=== PATIENT | male | born 1985 | race Caucasian/White ===

== ENCOUNTER 2019-02-25 08:00 | Outpatient (CLI) | payer MEDICAID ==
[2019-02-25 18:35] LABS: BASOPHILS # (AUTO) 0.1 10^3/uL (0.0-0.1); BASOPHILS % (AUTO) 0.7 %; EOSINOPHILS # (AUTO) 0.3 10^3/uL (0.0-0.7); EOSINOPHILS % (AUTO) 4.8 %; HGB - HEMOGLOBIN 15.1 g/dL (14.0-18.0); LYMPHOCYTES # (AUTO) 1.7 10^3/uL (1.5-3.5); LYMPHOCYTES % (AUTO) 24.1 %; MEAN CORPUSCULAR HEMOGLOBIN 27.8 pg (27.0-31.0); MEAN CORPUSCULAR VOLUME 86.9 fL (80.0-94.0); MEAN PLATELET VOLUME 11.9 fL (7.4-11.4); MONOCYTES # (AUTO) 0.5 10^3/uL (0.0-1.0); MONOCYTES % (AUTO) 7.1 %; NEUTROPHILS # (AUTO) 4.3 10^3/uL (1.5-6.6); NEUTROPHILS % (AUTO) 63.2 %; PLT - PLATELET COUNT 210 10^3/uL (130-450); RED BLOOD COUNT 5.43 10^6/uL (4.70-6.10); RED CELL DISTRIBUTION WIDTH 13.2 % (12.0-15.0); WHITE BLOOD COUNT 6.9 x10^3/uL (4.8-10.8)
[2019-02-25 18:55] LABS: CALCIUM 9.1 mg/dL (8.5-10.3); CREATININE 0.9 mg/dL (0.6-1.2)
== END 2019-02-25 23:59 | disposition home or self-care (01) ==
LOC: LAB.N 08:00
PROVIDERS: ATTEND Physician Assistant Medical
DX: M54.9 Dorsalgia, unspecified (principal)
CPT/HCPCS: 36415; 80048; 85025

== ENCOUNTER 2019-02-25 14:30 | Outpatient (CLI) | payer MEDICAID ==
--- NOTE | 2019-02-25 16:10 | XRAY Report ---
Reason: paraspinal back pain right Procedure Date: 02/25/2019 Accession Number: [id number] / [id number] Procedure: XRN - Lumbar Spine Complete CPT Code: FULL RESULT: EXAM: LUMBOSACRAL SPINE RADIOGRAPHY EXAM DATE: 02/25/2019 02:58 PM. CLINICAL HISTORY: Paraspinal back pain right. COMPARISONS: None. TECHNIQUE: 5 views. FINDINGS: Alignment: There is minimal S-shaped scoliosis, dextroconvex centered about L2, levoconvex centered about L4, less than 10 degrees each. No listhesis. Bones: Five hdh-dvb-khbnkgp lumbar vertebral bodies are present. No fractures or bone lesions. Disks: Normal. Disk heights are maintained. Facets: There is mild facet arthropathy predominantly at L5, evaluation mildly limited by motion artifact on lateral views. Sacroiliac Joints: Unremarkable. Soft Tissues: Normal. The visualized bowel gas pattern is normal. IMPRESSION: Mild degenerative changes. Minimal apparent S-shaped scoliosis, a finding that can be seen with back spasm. RADIA
== END 2019-02-25 14:31 | disposition home or self-care (01) ==
LOC: DI.N 14:30
PROVIDERS: ATTEND Physician Assistant Medical
DX: M47.816 Spondylosis without myelopathy or radiculopathy, lumbar region (principal); M41.86 Other forms of scoliosis, lumbar region
CPT/HCPCS: 36415; 72110; 80048; 85025

== ENCOUNTER 2019-09-25 09:58 | Outpatient (CLI) | payer MEDICAID ==
--- NOTE | 2019-09-25 13:02 | MRI Report ---
Reason: LOW BACK PAIN CHRONIC Procedure Date: 09/25/2019 Accession Number: [id number] / [id number] Procedure: MRI - Lumbar Spine W/O CPT Code: Final Report FULL RESULT: EXAM: MRI LUMBAR SPINE WITHOUT CONTRAST EXAM DATE: 09/25/2019 10:42 AM. CLINICAL HISTORY: Low back pain, chronic. COMPARISON: None. TECHNIQUE: Multiplanar, multisequence T1-weighted and fluid-sensitive sequences of the lumbar spine from T12 to S1 without contrast. Other: None. FINDINGS: Spinal Canal: The conus terminates at L1. The conus medullaris and cauda equina are unremarkable. Alignment: No scoliosis or spondylolisthesis. Bone Marrow: Five gde-hcv-[id number] lumbar vertebral bodies are assumed. No gross fractures or bone lesions. No bone marrow replacement. Disk Levels/Facets: T12-L1: Unremarkable. L1-L2: Unremarkable. L2-L3: Unremarkable. L3-L4: Unremarkable. L4-L5: Mild disk degeneration. Central posterior 2 mm disk protrusion. The intervertebral foramina are negative for stenosis. L5-S1: Mild bilateral facet joint arthrosis. Posterior 2 mm disk protrusion. Musculature: Normal. No edema or fatty atrophy. Other: The partially visualized retroperitoneum is unremarkable. IMPRESSION: 1. Negative for disk herniation, spinal canal stenosis or foraminal stenosis. 2. Mild disk degeneration L4-L5 with central focal 2 mm disk protrusion. Comment: The following findings are so common in adults without low back pain that while we report their presence, they must be interpreted with caution and in the context of the clinical situation. (Reference Howardvik et al, Spine 2001) Prevalence of findings in patients without low back pain: Disk degeneration (any evidence): 92% Disk desiccation/T2 signal loss: 83% Disk height loss: 56% Disk bulge: 64% Disk protrusion: 32% Annular tear/high intensity zone: 38% RADIA
== END 2019-09-25 09:59 | disposition home or self-care (01) ==
LOC: DI 09:58
PROVIDERS: ATTEND Physician Assistant Medical
DX: M51.26 Other intervertebral disc displacement, lumbar region (principal); M51.36 Other intervertebral disc degeneration, lumbar region; M47.817 Spondylosis without myelopathy or radiculopathy, lumbosacral region; M51.27 Other intervertebral disc displacement, lumbosacral region
CPT/HCPCS: 72148

== ENCOUNTER 2019-12-12 20:13 | Emergency (ER) | payer MEDICAID ==
[2019-12-12 20:28] VITALS: BP 137/93
--- NOTE | 2019-12-12 20:35 | ED Physician Documentation ---
PD HPI LOWER EXT INJURY - Stated complaint Stated Complaint: LT LEG PX - Chief complaint Chief Complaint: Ext Problem - History obtained from History obtained from: Patient - History of Present Illness PD HPI LOW EXT INJURY LOCATION: Left (About 5 days ago he had atraumatic pain in the bottom of the foot. It was near the meth fifth metatarsal. Much worse with the when he walks. A few days later the pain started radiating up to the calf which worried him after he used [employer] and suggested blood clot. There is no chest pain or trouble breathing. He is never had a blood clot but he had a grandmother with 1. No fevers or chills.) Review of Systems Constitutional: denies: Fever, Chills Cardiac: denies: Chest pain / pressure, Palpitations Respiratory: denies: Dyspnea, Cough PD PAST MEDICAL HISTORY - Present Medications Home Medications: Ambulatory Orders Medication Instructions Recorded Confirmed Ibuprofen [Motrin] 800 mg PO Q8H PRN #30 tablet 12/12/19 - Allergies Allergies/Adverse Reactions: Allergies Allergy/AdvReac Type Severity Reaction Status Date / Time No Known Drug Allergies Allergy Verified 12/12/19 20:28 PD ED PE NORMAL - Vitals Vital signs reviewed: Yes - General General: Alert and oriented X 3, No acute distress - Extremities Extremities: Other (He has significant pes planus, some tenderness near the fifth metatarsal but not severe. No warmth or redness. Calves are symmetric with only mild calf tenderness on the left. Normal pedal pulses.) - Neuro Neuro: Alert and oriented X 3, Normal speech Results - Vitals Vitals: Vital Signs - 24 hr 12/12/19 20:22 Temperature 36.2 C L Heart Rate 125 H Respiratory 18 Rate Blood Pressure 137/93 H O2 Saturation 97 Oxygen O2 Source Room air Departure - Departure Disposition: Home, Self Care Clinical Impression: Pain in extremity Qualifiers: Extremity pain location: lower extremity Laterality: left Qualified Code(s): M79.605 - Pain in left leg Condition: Good Record reviewed to determine appropriate education?: Yes Instructions: ED Acute Pain [facility] Prescriptions: Ibuprofen [Motrin] 800 mg PO Q8H PRN #30 tablet PRN Reason: PAIN &/OR FEVER Comments: No evidence of blood clot in your leg, seems more like sort of general foot pain radiating up her leg from flat feet. Follow-up with your primary care physician, return for new or worsening symptoms.
[2019-12-12] MEDS ORDERED: HYDROcod/ACET 5/325 Prepack 4 PO STA (22:07)
--- NOTE | 2019-12-12 22:30 | Ultrasound Report ---
Reason: calf pain Procedure Date: 12/12/2019 Accession Number: [id number] / [id number] Procedure: US - Duplex Ext Veins Left CPT Code: Final Report FULL RESULT: EXAM: LEFT LOWER EXTREMITY VENOUS ULTRASOUND EXAM DATE: 12/12/2019 10:01 PM. CLINICAL HISTORY: Calf pain. COMPARISON: None. TECHNIQUE: Real-time sonographic vascular imaging was performed by the facility technician through the lower extremity utilizing both color-flow and Doppler spectral analysis. Multiple cordage sales representative static images were saved for review. FINDINGS: Common Femoral Vein (CFV): Normal. CFV-GSV Junction: Normal. Profunda Femoral Vein (PFV): Normal. Femoral Vein (FV) Prox: Normal. Femoral Vein (FV) Mid: Normal. Femoral Vein (FV) Dist: Normal. Popliteal Vein: Normal. Posterior Tibial Veins: Normal. Peroneal Veins: Normal. IMPRESSION: No evidence for deep venous thrombosis. RADIA
== END 2019-12-12 22:19 | disposition home or self-care (01) ==
LOC: ED 20:13
DX: M79.605 Pain in left leg (principal)
CPT/HCPCS: 99283; 99284

== ENCOUNTER 2021-06-02 09:38 | Outpatient (CLI) | payer MEDICAID ==
--- NOTE | 2021-06-02 14:30 | XRAY Report ---
PROCEDURE: Foot 2 View RT INDICATIONS: GOUT TECHNIQUE: 2 views of the foot were acquired. COMPARISON: None FINDINGS: Bones: No fractures or dislocations. No suspicious bony lesions. Soft tissues: No tibiotalar joint effusion. Achilles tendon appears normal. IMPRESSION: No visualized erosions. Reviewed by: Marsha Pappas MD on 06/02/2021 2:29 PM PDT Approved by: Marsha Pappas MD on 06/02/2021 2:29 PM PDT Station ID: [id number]
== END 2021-06-02 09:39 | disposition home or self-care (01) ==
LOC: DI.N 09:38
PROVIDERS: ATTEND Nurse Practitioner
DX: M10.9 Gout, unspecified (principal)

== ENCOUNTER 2023-08-19 16:31 | Outpatient (CLI) | payer MEDICAID ==
[2023-08-19 21:04] LABS: BASOPHILS % (AUTO) 0.6 %; EOSINOPHILS # (AUTO) 0.1 10^3/uL (0.0-0.7); EOSINOPHILS % (AUTO) 1.4 %; HCT - HEMATOCRIT 45.8 % (42.0-52.0); HGB - HEMOGLOBIN 14.6 g/dL (14.0-18.0); LYMPHOCYTES # (AUTO) 2.6 10^3/uL (1.5-3.5); LYMPHOCYTES % (AUTO) 39.8 %; MEAN CORPUSCULAR HEMOGLOBIN 26.5 pg (27.0-31.0); MEAN CORPUSCULAR HGB CONC 31.9 g/dL (32.0-36.0); MEAN CORPUSCULAR VOLUME 83.3 fL (80.0-94.0); MEAN PLATELET VOLUME 11.7 fL (7.4-11.4); MONOCYTES # (AUTO) 0.6 10^3/uL (0.0-1.0); MONOCYTES % (AUTO) 8.5 %; NEUTROPHILS # (AUTO) 3.3 10^3/uL (1.5-6.6); NEUTROPHILS % (AUTO) 49.5 %; PLT - PLATELET COUNT 271 10^3/uL (130-450); RED CELL DISTRIBUTION WIDTH 13.3 % (12.0-15.0); WHITE BLOOD COUNT 6.6 x10^3/uL (4.8-10.8)
[2023-08-19 21:22] LABS: ALBUMIN 4.7 g/dL (3.2-5.5); ALBUMIN/GLOBULIN RATIO 1.7 (1.0-2.2); ALKALINE PHOSPHATASE 49 IU/L (42-121); ALT ALANINE AMINOTRANSFERASE 27 IU/L (10-60); AST ASPARTATE AMINOTRANSFERASE 20 IU/L (10-42); BILIRUBIN,TOTAL 0.4 mg/dL (0.2-1.0); BUN - BLOOD UREA NITROGEN 16 mg/dL (6-20); CALCIUM 9.5 mg/dL (8.5-10.3); CARBON DIOXIDE - CO2 29 mmol/L (21-32); CHLORIDE 103 mmol/L (101-111); CHOL/HDL RATIO 4.2 (<5.0); CHOLESTEROL 148 mg/dL; GFR - MDRD 84 (>89); GLUCOSE 99 mg/dL (74-104); HDL CHOLESTEROL 35 mg/dL; LDL CHOLESTEROL,CALCULATED 86 mg/dL; LDL/HDL RATIO 2.5 (<3.6); POTASSIUM 4.6 mmol/L (3.5-4.5); SODIUM 139 mmol/L (135-145); TOTAL PROTEIN 7.4 g/dL (6.4-8.9); TRIGLYCERIDES 134 mg/dL (48-352); URIC ACID 8.7 mg/dL (4.4-7.6); VLDL CHOLESTEROL 27 mg/dL
[2023-08-19 21:32] LABS: THYROID STIMULATING HORMONE 2.52 uIU/mL (0.34-5.60)
== END 2023-08-19 16:32 | disposition home or self-care (01) ==
LOC: LAB.N 16:31
PROVIDERS: ATTEND Nurse Practitioner
DX: E78.01 Familial hypercholesterolemia (principal); R53.83 Other fatigue; F43.21 Adjustment disorder with depressed mood; M10.9 Gout, unspecified
CPT/HCPCS: 36415; 80053; 80061; 83721; 84443; 84550; 85025

== ENCOUNTER 2023-11-19 07:52 | Outpatient (CLI) | payer MEDICAID ==
--- NOTE | 2023-11-19 08:14 | CARDIAC PROCEDURE NOTE ---
Stress Test Report Service Date: 11/19/23 Service Time: 08:00 Ordering Provider: Savannah Kuo ARNP Indication for Test: Assess intermittent chest discomfort. Significant Medical History: Boyd is referred for a treadmill stress echocardiogram today, to assess intermittent, typically nonexertional, "squeezing" chest discomfort that has been present been present for a few years. He is overweight is and working to address this, with a keto diet that has yielded some success (recently about a 30-40 pound weight loss). He has noted more frequent chest discomfort episodes when his weight has fluctuated upwards. 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 He is not especially active outside of his work, though he tolerates walking on the beach or other moderate intensity activities without discomfort. He reports that the discomfort comes on without any known triggers, can last as long as an hour, at some times is waxing and waning. It does not radiate and is typically not associated with shortness of breath, nausea or vomiting. He just tries to rest and take it easy and the pain gradually subsides. He has an intermediate risk factor profile as elaborated in more detail below. Cardiac Risk Factors: Boyd was a cigarette smoker for 15 years, but quit in 2016, so at present this is a mininal positive risk; likewise he has recently (within the past year) started on treatment for hyperlipidemia (on treatment values in 08/31 included TChol 148, LDLc 86, HDLc 35, TG 134) and hypertension; he has an "uncle" with sudden cardiac in his 40's (though he is not exactly sure how they were related) and maternal grandfather with ID at age ~80; he is not diabetic. Type of Stress Test: ETT with Echocardiography Procedure: -Exercise Treadmill Test- After signing informed consent, the patient underwent echo imaging at rest and then performed treadmill exercise using a Calderon protocol. The patient exercised for 6 minutes 20 seconds and achieved a peak heart rate of 174 (94 percent predicted maximum heart rate for age), and an estimated workload of 7.8 METS. The test was terminated due to fatigue/shortness of breath and leg burning. Resting heart rate: 102 Peak heart rate: 174 Elevated at rest but normal response to exercise. Resting BP: 139/78 Peak BP: 166/66 Normal response of systolic and diastolic BPs to exercise. Room air oxygen saturation ranged between 89-93% at rest but increased to 95-96% with exercise. Rhythm during exercise: Sinus rhythm throughout, without ectopy; zero PVCs recorded. Symptoms: He denied experiencing any chest pressure/squeezing/discomfort/pain. EKG at rest showed sinus tachycardia with low precordial lead QRS voltages, with nonspecific T wave abnormality in leads III, aVF, V3V6. EKG at peak stress showed Jpoint depression with upsloping ST segments, NOT meeting EKG diagnostic criteria for ischemia. In Recovery HR partially recovered to resting level, with BP that more fully normalized (HR 125, BP 139/99 at 11:59). Echo imaging, performed at rest and with stress, will be reported separately. I, Angelo Perdomo MD, was present throughout this treadmill stress study and supervised it in its entirety. Summary: 1) Exercise tolerance markedly reduced for age and sex as evidenced by ONDINA of 46%. 2) Abnormal resting EKG. 3) Adequate level of exercise was achieved on this treadmill stress test. 4) Normal BP response to exercise. 5) No ischemic changes by EKG criteria were seen at peak stress. 6) Interpretation of reduced quality echo images reveals normal left ventricular size, wall thickness and systolic function, with appropriate hyperdynamic aug mentation of all segments with exercise, indicating no evidence of prior infarct or inducible ischemia. No significant valvular abnormality or elevation of estimated pulmonary artery systolic pressure seen on screening study. See separate report for more details. Conclusions and Recommendations: 1) Overall these treadmill stress echocardiogram results are reassuring, as t here was no symptom, EKG or echocardiographic evidence of inducible ischemia. 2) Concerns include his resting sinus tachycardia and slower than average return of heart rate to normal post exercise as well as his significantly decreased exercise time, both of which could be a consequence of poor conditioning. He is encouraged to continue aggressive efforts at weight loss and to look for opportunities to increase vigorous walking to a total of 150 minutes/week. He also has a new bicycle and is encouraged to ride it. 3) In review of his medications, he tells me that he takes his rosuvastatin and lisinopril before going to bed at about 4 AM; after several hours of sleep he works typically from 78 PM until about 3 AM. I recommended that he change the time of administration to after he awakens, to obtain the best reduction of his blood pressure from lisinopril during waking hours. I also encouraged him to obtain an arm blood pressure monitor so that he can follow blood pressures, which may come down over time, with increased activity and continued weight loss. 4) Lastly, with all of the steps he is taking to reduce long-term risk and today's reassuring results there is probably no compelling reason for him to continue aspirin (essentially for primary prevention), though I will defer to Ms. Kuo to advise him on this issue.
== END 2023-11-19 07:53 | disposition home or self-care (01) ==
LOC: DI 07:52
PROVIDERS: ATTEND Nurse Practitioner
DX: R07.9 Chest pain, unspecified (principal)
CPT/HCPCS: 93350